=== PATIENT | male | born 1985 | race Caucasian/White ===

== ENCOUNTER 2016-05-25 18:32 | Emergency (ER) | payer MEDICAID ==
--- NOTE | 2016-05-25 18:49 | Emergency Department Record ---
History of Present Illness - General Chief Complaint: Laceration(s) Stated Complaint: LEFT THUMB LACERATION Time Seen by Provider: 05/25/16 18:37 Source: Patient Mode of Arrival: Ambulatory Limitations: No limitations - History of Present Illness Initial Commments: 30 yo male presents to ED with a CC of a laceration to the left thumb while "skinning a raccoon". Patient reports that the point of the knife he was using went directly into the dorsal aspect of the left thumb at the level of the DIP. Patient applied direct pressure to the wound prior to arrival, bleeding has stopped. Patient reports that his tetanus is UTD. Onset/Timin -: Minutes(s) Location: Other Extremity Location: Left: Hand Place: Work Context: Accidental Associated Symptoms: None - Richard Coma Scale Eye Response: (4) Open spontaneously Motor Response: (6) Obeys commands Verbal Response: (5) Oriented [place] Total: 15 - Related Data Hx Tetanus Toxoid Vaccination: Yes Year of Tetanus Vaccination: 2013 Patient Tetanus UTD (within 5 yrs): Yes Home Medications Medication Instructions Recorded Confirmed Last Taken Albuterol Sulfate [Proventil Hfa] 1 - 2 puff INH .EVERY 4-6 HOURS PRN 04/01/16 05/25/16 Unknown Aspirin Chewable 81 mg PO DAILY 04/01/16 05/25/16 04/01/16 Clonazepam [Klonopin] 1 mg PO Q12H 04/01/16 05/25/16 03/28/16 Topiramate [Topamax] 50 mg PO BID 04/01/16 05/25/16 04/01/16 Previous Rx's Medication Instructions Recorded Sertraline HCl [Zoloft] 100 mg PO DAILY #10 tablet 04/01/16 Amoxicillin/Potassium Clav 1 tab PO BID #19 tab 05/25/16 [Augmentin 875-125 Tablet] Allergies Allergy/AdvReac Type Severity Reaction Status Date / Time nortriptyline AdvReac TACHYCARDIA Verified 05/25/16 18:43 Travel Screening - Travel/Exposure Within Last 30 Days Have you traveled within the last 30 days?: No Review of Systems Constitutional: Denies: Chills, Fever, Malaise, Night sweats Eyes: Denies: Eye discharge, Eye pain ENT: Denies: Congestion, Ear pain, Epistaxis Respiratory: Denies: Cough, Dyspnea Cardiovascular: Denies: Chest pain, Dyspnea on exertion Endocrine: Denies: Fatigue, Heat or cold intolerance Gastrointestinal: Denies: Abdominal pain, Nausea, Vomiting Genitourinary: Denies: Incontinence, Retention Musculoskeletal: Denies: Arthralgia, Back pain Skin: Denies: Bruising, Change in color Neurological: Denies: Abnormal gait, Confusion, Headache, Seizure Psychiatric: Denies: Anxiety Hematological/Lymphatic: Denies: Anemia, Blood Clots Past Medical History - SOCIAL HISTORY Smoking Status: Current every day smoker Alcohol Use: None Drug Use: None - RESPIRATORY Hx Respiratory Disorders: No - CARDIOVASCULAR Hx Cardio Disorders: Yes Hx Hypertension: Yes Comment:: Tachycardia from a med- stress test neg. - NEURO Hx Neuro Disorders: Yes Hx Headaches: Yes Hx TIA: Yes Comment:: TBI ; multiple concussions - GI Hx GI Disorders: No - Hx Genitourinary Disorders: Yes Hx Kidney Stones: Yes (2013) - ENDOCRINE Hx Endocrine Disorders: No - MUSCULOSKELETAL Hx Musculoskeletal Disorders: Yes Comment:: L knee, lower leg, L hip-fractures. - PSYCH Hx Psych Problems: Yes Hx Anxiety: Yes Comment:: PTSD - HEMATOLOGY/ONCOLOGY Hx Hematology/Oncology Disorders: No Family Medical History Any Significant Family History?: Yes Hx Cancer: Father, Mother Hx Stroke: Grandparents Physical Exam - General General Appearance: Alert, Oriented x3, Cooperative, No acute distress Limitations: No limitations - Head Head exam: Atraumatic, Normocephalic, Normal inspection Head exam detail: negative: Abrasion, Contusion, Son's sign, General tenderness, Hematoma, Laceration - Eye Eye exam: Normal appearance. negative: Conjunctival injection, Periorbital swelling, Periorbital tenderness, Scleral icterus - ENT Ear exam: negative: Auricular hematoma, Auricular trauma Nasal Exam: negative: Active bleeding, Discharge, Dried blood, Foreign body Mouth exam: negative: Drooling, Laceration, Muffled voice, Tongue elevation - Neck Neck exam: Normal inspection. negative: Meningismus, Tenderness - Respiratory Respiratory exam: Normal lung sounds bilaterally. negative: Rales, Respiratory distress, Rhonchi, Stridor - Cardiovascular Cardiovascular Exam: Regular rate, Normal rhythm, Normal heart sounds - GI/Abdominal GI/Abdominal exam: Soft. negative: Rebound, Rigid, Tenderness - Rectal Rectal exam: Deferred - exam: Deferred - Extremities Extremities exam: Other (0.5 cm superficial laceration to the left thumb dorsally, no active bleeding is present, tendon function is intact with flexion and extension of the thumb. ). negative: Calf tenderness, Pedal edema, Tenderness - Back Back exam: Denies: CVA tenderness (R), CVA tenderness (L) - Neurological Neurological exam: Alert, Normal gait, Oriented X3 - Psychiatric Psychiatric exam: Normal affect, Normal mood - Skin Skin exam: Normal color. negative: Abrasion Type of lesion: negative: abrasion Course Vital Signs 05/25/16 18:36 Temperature 98.3 F Pulse Rate 81 Respiratory 20 Rate Blood Pressure 123/70 Pulse Ox 96 - Reevaluation(s) Reevaluation #1: 05/25/16 18:49 Laceration measures 0.5 cm in length on examination with no evidence for deep tissue involvment, tendon function appears normal on examination, and there is no active bleeding present. Will soak in Shur-clens solution, initiate Augmentin from [facility] ED. Sutures/Dermabond are not indicated as the wound is no longer bleeding, and do to the mechanism and risk of infection, primary closure is not recommended. Patient appears stable for discharge at this time on Augmentin for antibiotic prophylaxis. Patient was given specific signs of infection to return to ED immediately for, including: increased redness, increased pain, drainage from the wound, pain with flexion of the thumb, or fever symptoms. 05/25/16 18:52 Reevaluation #2: 05/25/16 19:11 Wound was extensively scrubbed to minimize the chance on infection, no bleeding noted. Will apply dressing to the wound to be removed tomorrow, antibiotics have been sent to the pharmacy to be filled tomorrow. Disposition Disposition: Discharge Clinical Impression: Laceration of thumb Qualifiers: Encounter type: initial encounter Laterality: left Qualified Code(s): S61.012A - Laceration without foreign body of left thumb without damage to nail, initial encounter Disposition: Home, Self-Care Condition: (2) Stable Instructions: Laceration (ED) Additional Instructions: Return to ED if your symptoms worsen or if you have any concerns. Augmentin as directed. Follow-up with your family doctor in 1 week as directed. Prescriptions: Amoxicillin/Potassium Clav [Augmentin 875-125 Tablet] 1 tab PO BID #19 tab Forms: Patient Portal Access Time of Disposition: 18:52
[2016-05-25] MEDS: AMOXICILLIN/POTASSIUM CLAV 875MG/125MG TABLET PO ONE (18:58)
== END 2016-05-25 19:22 | disposition home or self-care (01) ==
LOC: ER 18:32
DX: S61.012A Laceration without foreign body of left thumb without damage to nail, initial encounter (principal); W26.0XXA Contact with knife, initial encounter; Y99.0 Civilian activity done for income or pay
CPT/HCPCS: 99282

== ENCOUNTER 2016-07-22 20:31 | Emergency (ER) | payer MEDICAID ==
[2016-07-22] MEDS ORDERED: HYDROMORPHONE HCL 1 MG/ML CPJ IVP ONE (21:03)
[2016-07-22] MEDS ORDERED: ONDANSETRON HCL IV 4 MG/2 ML VIAL IVP ONE (21:03)
--- NOTE | 2016-07-22 21:10 | Emergency Department Record ---
History of Present Illness - General Chief Complaint: Back Pain/Injury Stated Complaint: BACK PAIN/HEAD PAIN/LEGS FEEL WEAK Time Seen by Provider: 07/22/16 21:03 Source: Patient Mode of Arrival: Ambulatory Limitations: No limitations - History of Present Illness Initial Comments: 31 yo male presents for evaluation of progressively worsening back pain symptoms for the past 3 months. Patient reports pain to the lower left lumbar region, was [facility] and told that he had a "palpable tumor" in the region of his pain. Patient reports weakness to the LLE, bowel incontinence while driving, night sweats, and 20 lb weight loss. Patient denies health problems at his baseline. MD Complaint: Back pain Onset/Timin -: Days(s) Similar Symptoms Previously: No Radiation: Left leg, Right leg Severity scale (1-10): 7 Quality: Other Consistency: Constant, Getting worse Improves With: None Worsens With: Immobilization, Walking Associated Symptoms: Difficulty walking, Incontinence, Numbness, Weakness - Related Data Home Medications Medication Instructions Recorded Confirmed Last Taken Albuterol Sulfate [Proventil Hfa] 1 - 2 puff INH .EVERY 4-6 HOURS PRN 04/01/16 05/25/16 Unknown Aspirin Chewable 81 mg PO DAILY 04/01/16 05/25/16 04/01/16 Clonazepam [Klonopin] 1 mg PO Q12H 04/01/16 05/25/16 03/28/16 Topiramate [Topamax] 50 mg PO BID 04/01/16 05/25/16 04/01/16 Previous Rx's Medication Instructions Recorded Sertraline HCl [Zoloft] 100 mg PO DAILY #10 tablet 04/01/16 Amoxicillin/Potassium Clav 1 tab PO BID #19 tab 05/25/16 [Augmentin 875-125 Tablet] Allergies Allergy/AdvReac Type Severity Reaction Status Date / Time nortriptyline AdvReac TACHYCARDIA Verified 05/25/16 18:43 Travel Screening - Travel/Exposure Within Last 30 Days Have you traveled within the last 30 days?: No - Travel Symptoms Symptom Screening: None Review of Systems Constitutional: Reports: Malaise, Night sweats, Weakness, Weight change. Denies : Chills, Fever Eyes: Denies: Eye discharge, Eye pain, Photophobia ENT: Denies: Congestion, Ear pain, Epistaxis Respiratory: Denies: Cough, Dyspnea Cardiovascular: Denies: Chest pain, Dyspnea on exertion Endocrine: Denies: Fatigue, Heat or cold intolerance Gastrointestinal: Reports: Other (bowel incontinence). Denies: Abdominal pain, Nausea, Vomiting Genitourinary: Denies: Incontinence, Retention Musculoskeletal: Reports: Back pain. Denies: Arthralgia, Gout, Joint swelling Skin: Denies: Bruising, Change in color, Change in hair/nails, Rash Neurological: Reports: Headache. Denies: Abnormal gait, Confusion, Seizure Psychiatric: Denies: Anxiety Hematological/Lymphatic: Denies: Anemia, Blood Clots Past Medical History - SOCIAL HISTORY Smoking Status: Current every day smoker - RESPIRATORY Hx Respiratory Disorders: Yes Hx Asthma: Yes Hx Sleep Apnea: Yes (waiting on testing.) - CARDIOVASCULAR Hx Cardio Disorders: Yes Hx Hypertension: Yes Comment:: Tachycardia from a med- stress test neg. - NEURO Hx Neuro Disorders: Yes Hx Headaches: Yes Hx TIA: Yes Comment:: TBI ; multiple concussions - GI Hx GI Disorders: No - Hx Genitourinary Disorders: Yes Hx Kidney Stones: Yes (2013) - ENDOCRINE Hx Endocrine Disorders: No - MUSCULOSKELETAL Hx Musculoskeletal Disorders: Yes Comment:: L knee, lower leg, L hip-fractures. - PSYCH Hx Psych Problems: Yes Hx Anxiety: Yes Comment:: PTSD - HEMATOLOGY/ONCOLOGY Hx Hematology/Oncology Disorders: No Family Medical History Any Significant Family History?: Yes Hx Cancer: Father, Mother Hx Stroke: Grandparents Physical Exam - General General Appearance: Alert, Oriented x3, Cooperative, Moderate distress Limitations: No limitations - Head Head exam: Atraumatic, Normocephalic, Normal inspection Head exam detail: negative: Abrasion, Contusion, Son's sign, General tenderness, Hematoma, Laceration - Eye Eye exam: Normal appearance. negative: Conjunctival injection, Periorbital swelling, Periorbital tenderness, Scleral icterus - ENT Ear exam: negative: Auricular hematoma, Auricular trauma Nasal Exam: negative: Active bleeding, Discharge, Dried blood, Foreign body Mouth exam: negative: Drooling, Laceration, Muffled voice, Tongue elevation - Neck Neck exam: Normal inspection. negative: Meningismus, Tenderness - Respiratory Respiratory exam: Normal lung sounds bilaterally. negative: Rales, Respiratory distress, Rhonchi, Stridor - Cardiovascular Cardiovascular Exam: Regular rate, Normal rhythm, Normal heart sounds - GI/Abdominal GI/Abdominal exam: Soft. negative: Rebound, Rigid, Tenderness - Rectal Rectal exam: Deferred - exam: Deferred - Extremities Extremities exam: Normal inspection. negative: Calf tenderness, Pedal edema, Tenderness - Back Back exam: Reports: Paraspinal tenderness (Left lower back paravertebral region) . Denies: CVA tenderness (R), CVA tenderness (L) - Neurological Neurological exam: Alert, Motor sensory deficit (4+/5 strength left lower extremity compared with the right.), Oriented X3 - Psychiatric Psychiatric exam: Normal affect, Normal mood - Skin Skin exam: Normal color. negative: Abrasion Type of lesion: negative: abrasion Course Vital Signs 07/22/16 20:39 Temperature 97.7 F Pulse Rate [ 82 Pulse Ox Probe] Respiratory 20 Rate Blood Pressure 114/87 [Left Arm] Pulse Ox 95 - Reevaluation(s) Reevaluation #1: 07/22/16 21:10 Case was discussed with Dr. Carrasquillo, will transfer for evaluation and probably MRI to exclude an acute spinal compression syndrome. 07/22/16 21:14 Reevaluation #2: 07/22/16 21:47 Patient declined Dilaudid for his pain symptoms due to previous opiate addiction issues, Toradol ordered. EMS is present for transfer. Disposition Disposition: Transfer Clinical Impression: Spinal cord compression Back pain Qualifiers: Back pain location: low back pain Chronicity: acute Back pain laterality: left Sciatica presence: without sciatica Qualified Code(s): M54.5 - Low back pain Transfer To: [facility] Reason For Transfer: MRI/neuro-surgical evaluation Accepting Physician: Foreign Time Discussed w/Accepting Physician: 21:12 Forms: Patient Portal Access Time of Disposition: 21:12
[2016-07-22] MEDS ORDERED: 0.9 % SODIUM CHLORIDE 1000ML 1,000 ML IV SCH (21:15)
[2016-07-22] MEDS ORDERED: KETOROLAC 30 MG/ML VIAL IVP ONE (21:25)
== END 2016-07-22 21:58 | disposition short-term general hospital (02) ==
LOC: ER 20:31
DX: G95.20 Unspecified cord compression (principal); M54.5 Low back pain; R26.2 Difficulty in walking, not elsewhere classified; R15.9 Full incontinence of feces; R53.1 Weakness
CPT/HCPCS: 96374; 96375; 99285; J1885; J2405; J7030

== ENCOUNTER 2016-11-01 | Emergency (ER) | payer SELFPAY ==
--- NOTE | 2016-11-01 00:21 | Emergency Department Record ---
History of Present Illness - General Chief complaint: Male Urogenital Problem Stated complaint: TESTICULAR PAIN Time Seen by Provider: 11/01/16 00:01 Source: Patient Mode of Arrival: Ambulatory Limitations: No limitations - History of Present Illness Initial comments: 31 yo male presents to ED with a CC of right sided testicular pain and swelling for the past 3-4 days. Patient reports possible trauma to the testicle while wrestling with his son. Patient reports that his symptoms have progressively worsened since that time, and the patient denies dysuria symptoms. MD Complaint: Testicle pain Onset/Timin -: Days(s) Location: Right testicle Radiation: None Severity scale (1-10): 7 Quality: Aching Consistency: Constant, Getting worse Improves with: None Worsens with: None - Related Data Sexually active: No Home Medications Medication Instructions Recorded Confirmed Last Taken Albuterol Sulfate [Proventil Hfa] 1 - 2 puff INH .EVERY 4-6 HOURS PRN 04/01/16 11/01/16 Unknown Aspirin Chewable 81 mg PO DAILY 04/01/16 11/01/16 04/01/16 Clonazepam [Klonopin] 1 mg PO Q12H 04/01/16 11/01/16 03/28/16 Topiramate [Topamax] 50 mg PO BID 04/01/16 11/01/16 04/01/16 Sertraline HCl [Zoloft] 50 mg PO DAILY 11/01/16 11/01/16 Unknown Allergies Allergy/AdvReac Type Severity Reaction Status Date / Time nortriptyline AdvReac TACHYCARDIA Verified 05/25/16 18:43 Travel Screening - Travel/Exposure Within Last 30 Days Have you traveled within the last 30 days?: No Review of Systems Constitutional: Denies: Chills, Fever, Malaise, Night sweats Eyes: Denies: Eye discharge, Eye pain ENT: Denies: Congestion, Ear pain, Epistaxis Respiratory: Denies: Cough, Dyspnea Cardiovascular: Denies: Chest pain, Dyspnea on exertion Endocrine: Denies: Fatigue, Heat or cold intolerance Gastrointestinal: Denies: Abdominal pain, Nausea, Vomiting Genitourinary: Reports: Testicular pain. Denies: Incontinence, Retention Musculoskeletal: Denies: Arthralgia, Back pain, Gout, Joint swelling Skin: Denies: Bruising, Change in color Neurological: Denies: Abnormal gait, Confusion, Headache, Seizure Psychiatric: Denies: Anxiety Hematological/Lymphatic: Denies: Anemia, Blood Clots Past Medical History - SOCIAL HISTORY Smoking Status: Current every day smoker Alcohol Use: None Drug Use: None - RESPIRATORY Hx Respiratory Disorders: Yes Hx Asthma: Yes Hx Sleep Apnea: Yes (waiting on testing.) - CARDIOVASCULAR Hx Cardio Disorders: Yes Hx Hypertension: Yes Comment:: Tachycardia from a med- stress test neg. - NEURO Hx Neuro Disorders: Yes Hx Headaches: Yes Hx TIA: Yes Comment:: TBI ; multiple concussions - GI Hx GI Disorders: No - Hx Genitourinary Disorders: Yes Hx Kidney Stones: Yes (2013) - ENDOCRINE Hx Endocrine Disorders: No - MUSCULOSKELETAL Hx Musculoskeletal Disorders: Yes Comment:: L knee, lower leg, L hip-fractures. - PSYCH Hx Psych Problems: Yes Hx Anxiety: Yes Comment:: PTSD - HEMATOLOGY/ONCOLOGY Hx Hematology/Oncology Disorders: No Family Medical History Any Significant Family History?: Yes Hx Cancer: Father, Mother Hx Stroke: Grandparents Physical Exam - General General Appearance: Alert, Oriented x3, Cooperative, Mild distress Limitations: No limitations - Head Head exam: Atraumatic, Normocephalic, Normal inspection Head exam detail: negative: Abrasion, Contusion, Son's sign, General tenderness, Hematoma, Laceration - Eye Eye exam: Normal appearance. negative: Conjunctival injection, Periorbital swelling, Periorbital tenderness, Scleral icterus - ENT Ear exam: negative: Auricular hematoma, Auricular trauma Nasal Exam: negative: Active bleeding, Discharge, Dried blood, Foreign body Mouth exam: negative: Drooling, Laceration, Muffled voice, Tongue elevation - Neck Neck exam: Normal inspection. negative: Meningismus, Tenderness - Respiratory Respiratory exam: Normal lung sounds bilaterally. negative: Rales, Respiratory distress, Rhonchi, Stridor, Wheezes - Cardiovascular Cardiovascular Exam: Regular rate, Normal rhythm, Normal heart sounds - GI/Abdominal GI/Abdominal exam: Soft. negative: Rebound, Rigid, Tenderness - Rectal Rectal exam: Deferred - exam: Testicular tenderness. negative: Urethral discharge - Extremities Extremities exam: Normal inspection. negative: Calf tenderness, Pedal edema, Tenderness - Back Back exam: Denies: CVA tenderness (R), CVA tenderness (L) - Neurological Neurological exam: Alert, Normal gait, Oriented X3 - Psychiatric Psychiatric exam: Normal affect, Normal mood - Skin Skin exam: Normal color. negative: Abrasion Type of lesion: negative: abrasion Course Vital Signs 11/01/16 00:06 Temperature 97.7 F Pulse Rate [ 79 Pulse Ox Probe] Respiratory 20 Rate Blood Pressure 121/80 [Left Arm] Pulse Ox 98 - Reevaluation(s) Reevaluation #1: 11/01/16 00:32 Case was discussed with Dr. Flood, will accept transfer for scrotal US. Patient appears stable for transfer by private car for urgent US imaging upon arrival to the ED. Patient and family agree with the plan as discussed. Disposition Disposition: Transfer Clinical Impression: Testicular pain, right Disposition: Acute Care Hospital Transfer Transfer To: [facility] Reason For Transfer: Scrotal US Accepting Physician: Remigio Time Discussed w/Accepting Physician: 00:32 Condition: (2) Stable Forms: Patient Portal Access Time of Disposition: 00:32 Quality - Quality Measures Quality Measures: N/A - Blood Pressure Screening Blood Pressure Classification: Pre-Hypertensive BP Reading Systolic Measurement: 121 Diastolic Measurement: 80 Screening for High Blood Pressure: < Pre-Hypertensive BP, F/U Documented > [ [id number]] Pre-Hypertensive Follow-up Interventions: Referral to alternative/primary care provider.
== END 2016-11-01 00:46 | disposition short-term general hospital (02) ==
LOC: ER
DX: N50.811 Right testicular pain (principal)
CPT/HCPCS: 99283

== ENCOUNTER 2017-03-08 22:14 | Emergency (ER) | payer OTHER ==
--- NOTE | 2017-03-08 23:04 | Emergency Department Record ---
Anxiety - General Chief Complaint: Anxiety Stated Complaint: ANXIETY Time Seen by Provider: 03/08/17 22:57 Source: Patient Mode of Arrival: Ambulatory Limitations: No limitations - History of Present Illness Initial Comments: 31 yo male presents with anxiety. Has been without Klononin for 4 days. His tracking paperwork show his medication will arrive tomorrow but after 4 days he is feeling very anxiety and shaky. No nausea or vomiting. No diarrhea. He is weaning off the medication but the mail and holiday have delayed arrival. [facility] [place] [facility] Complaint: Anxiety Onset/Timin -: Days(s) Symptoms: Other Place: Home Previous History of Same: Yes Severity: Mild Provoking factors: Work/job stress Improves With: Nothing Worsens With: Nothing Associated symptoms: Denies other symptoms - Related Data Home Medications: Previous Rx's Medication Instructions Recorded Clonazepam [Klonopin] 1 mg PO Q12H #2 tablet 03/08/17 Allergies/Adverse Reactions: Allergies Allergy/AdvReac Type Severity Reaction Status Date / Time nortriptyline AdvReac TACHYCARDIA Verified 05/25/16 18:43 Travel Screening - Travel/Exposure Within Last 30 Days Have you traveled within the last 30 days?: No - Travel/Exposure Within Last Year Have you traveled outside the [place] in the last year?: No - Additonal Travel Details Have you been exposed to anyone with a communicable illness?: No - Travel Symptoms Symptom Screening: None Review of Systems Constitutional: Denies: Chills, Fever, Malaise, Weakness Eyes: Denies: Eye discharge, Eye pain, Photophobia, Vision change ENT: Denies: Congestion, Throat pain Respiratory: Denies: Cough, Dyspnea, Hemoptysis, Stridor, Wheezes Cardiovascular: Denies: Chest pain, Palpitations, Syncope Endocrine: Denies: Fatigue, Polydipsia, Polyuria Gastrointestinal: Denies: Abdominal pain, Diarrhea, Nausea, Vomiting Genitourinary: Denies: Dysuria, Frequency, Hematuria Musculoskeletal: Denies: Arthralgia, Back pain, Joint swelling, Myalgia Skin: Denies: Bruising, Change in color, Rash Neurological: Denies: Abnormal gait, Confusion, Headache, Numbness, Tingling, Tremors, Weakness Psychiatric: Reports: Anxiety Hematological/Lymphatic: Denies: Anemia, Blood Clots, Easy bleeding, Easy bruising, Swollen glands Past Medical History - SOCIAL HISTORY Smoking Status: Current every day smoker Alcohol Use: None Drug Use: None - RESPIRATORY Hx Respiratory Disorders: Yes Hx Asthma: Yes Hx Sleep Apnea: Yes (waiting on testing.) - CARDIOVASCULAR Hx Cardio Disorders: Yes Hx Hypertension: Yes Comment:: Tachycardia from a med- stress test neg. - NEURO Hx Neuro Disorders: Yes Hx Headaches: Yes Hx TIA: Yes Comment:: TBI ; multiple concussions - GI Hx GI Disorders: No - Hx Genitourinary Disorders: Yes Hx Kidney Stones: Yes (2013) - ENDOCRINE Hx Endocrine Disorders: No - MUSCULOSKELETAL Hx Musculoskeletal Disorders: Yes Comment:: L knee, lower leg, L hip-fractures. - PSYCH Hx Psych Problems: Yes Hx Anxiety: Yes Comment:: PTSD - HEMATOLOGY/ONCOLOGY Hx Hematology/Oncology Disorders: No Family Medical History Any Significant Family History?: No Hx Cancer: Father, Mother Hx Stroke: Grandparents Physical Exam - General General Appearance: Alert, Oriented x3, Cooperative, No acute distress Limitations: No limitations - Head Head exam: Normal inspection - Eye Eye exam: Normal appearance, PERRL. negative: Conjunctival injection, Periorbital swelling - ENT ENT exam: Normal exam, Mucous membranes moist Ear exam: Normal external inspection Nasal Exam: Normal inspection Mouth exam: Normal external inspection - Neck Neck exam: Normal inspection, Full ROM. negative: Tenderness - Respiratory Respiratory exam: Normal lung sounds bilaterally. negative: Respiratory distress - Cardiovascular Cardiovascular Exam: Regular rate, Normal rhythm, Normal heart sounds Peripheral Pulses: 2+: Radial (R), Radial (L) - GI/Abdominal GI/Abdominal exam: Soft. negative: Tenderness - Rectal Rectal exam: Deferred - exam: Deferred - Extremities Extremities exam: Normal inspection - Back Back exam: Reports: Normal inspection, Full ROM. Denies: Muscle spasm, Rash noted, Tenderness - Neurological Neurological exam: Alert, Normal gait, Oriented X3, Reflexes normal. negative: Abnormal gait, Altered, Motor sensory deficit - Psychiatric Psychiatric exam: Normal affect, Normal mood. negative: Anxious - Skin Skin exam: Dry, Intact, Normal color, Warm Course Vital Signs 03/08/17 22:42 Temperature 97.9 F Pulse Rate 66 Respiratory 20 Rate Blood Pressure 115/82 Pulse Ox 97 - Reevaluation(s) Reevaluation #1: The patient was seen and examined He has the tracking information I explained [facility] policy of no refills on controlled medications He will be provided one does in the ED. He has a ride An Rx for 2 tablets was provided DC stable with anticipated follow up with [facility] doctor [facility] 03/08/17 23:12 Disposition Disposition: Discharge Clinical Impression: Anxiety Disposition: Home, Self-Care Condition: (1) Good Instructions: Social Anxiety Disorder (ED) Additional Instructions: Call your doctor for close follow up this week Resume your prescription when it arrives Prescriptions: Clonazepam [Klonopin] 1 mg PO Q12H #2 tablet Forms: Patient Portal Access Time of Disposition: 22:59 Quality - Quality Measures Quality Measures: N/A - Blood Pressure Screening Does Patient Have Any of the Following: No Blood Pressure Classification: Pre-Hypertensive BP Reading Systolic Measurement: 115 Diastolic Measurement: 82 Screening for High Blood Pressure: < Pre-Hypertensive BP, F/U Documented > [ G8950] Pre-Hypertensive Follow-up Interventions: Referral to alternative/primary care provider.
[2017-03-08] MEDS: CLONAZEPAM 1MG TABLET PO ONE (23:11)
== END 2017-03-08 23:17 | disposition home or self-care (01) ==
LOC: ER 22:14
DX: F41.9 Anxiety disorder, unspecified (principal)
CPT/HCPCS: 99282

== ENCOUNTER 2017-06-09 00:17 | Emergency (ER) | payer OTHER ==
[2017-06-09] MEDS ORDERED: CLONAZEPAM 1MG TABLET PO ONE (01:03)
--- NOTE | 2017-06-09 01:14 | Emergency Department Record ---
History of Present Illness - General Chief complaint: Vomiting Stated complaint: VOMITTING,SHAKES,NUMBNESS Time Seen by Provider: 06/09/17 00:50 Source: Patient Mode of Arrival: Ambulatory Limitations: No limitations - History of Present Illness Initial comments: [facility] them daily Onset/Timin -: Days(s) Associated Abdominal Pain: No Associated Symptoms: Nausea/vomiting - Related Data Previous Rx's Medication Instructions Recorded Clonazepam [Klonopin] 1 mg PO Q12H #2 tablet 03/08/17 Clonazepam [Klonopin] 1 mg PO Q12H #14 tablet 06/09/17 Sertraline HCl [Zoloft] 50 mg PO DAILY #14 tablet 06/09/17 Allergies Allergy/AdvReac Type Severity Reaction Status Date / Time nortriptyline AdvReac TACHYCARDIA Verified 05/25/16 18:43 Travel Screening - Travel/Exposure Within Last 30 Days Have you traveled within the last 30 days?: No Review of Systems Reviewed: No additional complaints except as noted below Constitutional: Reports: As per HPI. Denies: Chills, Fever, Malaise, Night sweats, Weakness, Weight change Eyes: Reports: As per HPI. Denies: Eye discharge, Eye pain, Photophobia, Vision change ENT: Reports: As per HPI. Denies: Congestion, Dental pain, Ear pain, Epistaxis , Hearing loss, Throat pain Respiratory: Reports: As per HPI. Denies: Cough, Dyspnea, Hemoptysis, Stridor, Wheezes Cardiovascular: Reports: As per HPI. Denies: Arrhythmia, Chest pain, Dyspnea on exertion, Edema, Murmurs, Orthopnea, Palpitations, Paroxysmal nocturnal dyspnea, Rheumatic Fever, Syncope Endocrine: Reports: As per HPI. Denies: Fatigue, Heat or cold intolerance, Polydipsia, Polyuria Gastrointestinal: Reports: As per HPI. Denies: Abdominal pain, Constipation, Diarrhea, Hematemesis, Hematochezia, Melena, Nausea, Vomiting Genitourinary: Reports: As per HPI. Denies: Dysuria, Frequency, Hematuria, Incontinence, Retention, Testicular pain, Testicular mass, Urgency Musculoskeletal: Reports: As per HPI. Denies: Arthralgia, Back pain, Gout, Joint swelling, Myalgia, Neck pain Skin: Reports: As per HPI. Denies: Bruising, Change in color, Change in hair/ nails, Lesions, Pruritus, Rash Neurological: Reports: As per HPI. Denies: Abnormal gait, Confusion, Headache, Numbness, Paresthesias, Seizure, Tingling, Tremors, Vertigo, Weakness Psychiatric: Reports: As per HPI. Denies: Anxiety, Auditory hallucinations, Depression, Homicidal thoughts, Suicidal thoughts, Visual hallucinations Hematological/Lymphatic: Reports: As per HPI. Denies: Anemia, Blood Clots, Easy bleeding, Easy bruising, Swollen glands Past Medical History - SOCIAL HISTORY Smoking Status: Current every day smoker Alcohol Use: None Drug Use: None - RESPIRATORY Hx Respiratory Disorders: Yes Hx Asthma: Yes Hx Sleep Apnea: Yes (waiting on testing.) - CARDIOVASCULAR Hx Cardio Disorders: Yes Hx Hypertension: Yes Comment:: Tachycardia from a med- stress test neg. - NEURO Hx Neuro Disorders: Yes Hx Headaches: Yes Hx TIA: Yes (2013) Comment:: TBI (open head wound) ; multiple concussions - GI Hx GI Disorders: No - Hx Genitourinary Disorders: Yes Hx Kidney Stones: Yes (2013) - ENDOCRINE Hx Endocrine Disorders: No - MUSCULOSKELETAL Hx Musculoskeletal Disorders: Yes Comment:: L knee, lower leg, L hip-fractures. - PSYCH Hx Psych Problems: Yes Hx Anxiety: Yes Comment:: PTSD - HEMATOLOGY/ONCOLOGY Hx Hematology/Oncology Disorders: No Family Medical History Any Significant Family History?: Yes Hx Cancer: Father, Mother Hx Stroke: Grandparents Physical Exam - General General Appearance: Alert, Oriented x3, Cooperative, Mild distress - Head Head exam: Normal inspection - Eye Eye exam: Normal appearance, PERRL, EOMI Pupils: Normal accommodation - ENT ENT exam: Normal exam, Mucous membranes moist, Normal external ear exam, Normal orophraynx Ear exam: Normal external inspection. negative: External canal tenderness Nasal Exam: Normal inspection. negative: Discharge, Sinus tenderness Mouth exam: Normal external inspection, Tongue normal Teeth exam: Normal inspection. negative: Dental caries Throat exam: Normal inspection. negative: Tonsillar erythema, Tonsillar exudate - Neck Neck exam: Normal inspection, Full ROM. negative: Tenderness - Respiratory Respiratory exam: Normal lung sounds bilaterally. negative: Respiratory distress - Cardiovascular Cardiovascular Exam: Regular rate, Normal rhythm, Normal heart sounds - GI/Abdominal GI/Abdominal exam: Soft, Normal bowel sounds. negative: Tenderness - Rectal Rectal exam: Deferred - exam: Deferred - Extremities Extremities exam: Normal inspection, Full ROM, Normal capillary refill. negative: Tenderness - Back Back exam: Reports: Normal inspection, Full ROM. Denies: Muscle spasm, Rash noted, Tenderness - Neurological Neurological exam: Alert, CN II-XII intact, Normal gait, Oriented X3 - Psychiatric Psychiatric exam: Anxious, Normal mood - Skin Skin exam: Dry, Intact, Normal color, Warm Course Vital Signs 06/09/17 00:28 Temperature 98.5 F Pulse Rate [ 65 Pulse Ox Probe] Respiratory 15 Rate Blood Pressure 132/76 [Left Arm] Pulse Ox 97 Disposition Disposition: Discharge Clinical Impression: Anxiety, Medication refill Disposition: Home, Self-Care Condition: (1) Good Instructions: Anxiety (ED), Sertraline (By mouth) Additional Instructions[facility] sooner if worse. Prescriptions: Clonazepam [Klonopin] 1 mg PO Q12H #14 tablet Sertraline HCl [Zoloft] 50 mg PO DAILY #14 tablet Quality - Quality Measures Quality Measures: N/A - Blood Pressure Screening Does Patient Have Any of the Following: No Blood Pressure Classification: Pre-Hypertensive BP Reading Systolic Measurement: 132 Diastolic Measurement: 76 Screening for High Blood Pressure: < Pre-Hypertensive BP, F/U Documented > [ G8950] Pre-Hypertensive Follow-up Interventions: Follow-up with rescreen every year.
[2017-06-09] MEDS ORDERED: SERTRALINE HCL 50 MG TABLET PO SCH (10:00)
== END 2017-06-09 01:25 | disposition home or self-care (01) ==
LOC: ER 00:17
DX: R11.2 Nausea with vomiting, unspecified (principal); R20.0 Anesthesia of skin; Z76.0 Encounter for issue of repeat prescription; R41.9 Unspecified symptoms and signs involving cognitive functions and awareness; I10 Essential (primary) hypertension; F17.210 Nicotine dependence, cigarettes, uncomplicated
CPT/HCPCS: 99282

== ENCOUNTER 2018-02-23 16:14 | Emergency (ER) | payer OTHER ==
--- NOTE | 2018-02-23 16:42 | Emergency Department Record ---
Anxiety - General Chief Complaint: Anxiety Stated Complaint: MEDS CHANGED/ NOT FEELING WELL Time Seen by Provider: 02/23/18 16:35 Source: Patient Mode of Arrival: Ambulatory - History of Present Illness Initial Comments: valium stopped 8 days ago and he having problems with insomnia and headaches and stommach is notted up. Patient has post traumatic stress syndrome. Last time vomiting this am. Onset/Timin -: Days(s) Symptoms: Dry mouth, Extremity numbness/tingling, Other Previous History of Same: Yes Severity: Moderate Quality: Intermittant Provoking factors: Medication change Improves With: Nothing Worsens With: Nothing Associated symptoms: Headaches, Other - Related Data Home Medications: Home Medications Medication Instructions Recorded Confirmed Last Taken Sertraline HCl [Zoloft] 150 mg PO DAILY 02/23/18 02/23/18 02/23/18 Previous Rx's Medication Instructions Recorded Hydroxyzine Pamoate [Vistaril] 25 mg PO Q6H #30 capsule 02/23/18 Allergies/Adverse Reactions: Allergies Allergy/AdvReac Type Severity Reaction Status Date / Time nortriptyline AdvReac TACHYCARDIA Verified 02/23/18 16:19 Travel Screening - Travel/Exposure Within Last 30 Days Have you traveled within the last 30 days?: No - Travel/Exposure Within Last Year Have you traveled outside the [place] in the last year?: No - Additonal Travel Details Have you been exposed to anyone with a communicable illness?: No - Travel Symptoms Symptom Screening: None Past Medical History - SOCIAL HISTORY Smoking Status: Light tobacco smoker (<10/day) Alcohol Use: None Drug Use: None - RESPIRATORY Hx Respiratory Disorders: Yes Hx Asthma: Yes Hx Sleep Apnea: Yes (waiting on testing.) - CARDIOVASCULAR Hx Cardio Disorders: Yes Hx Hypertension: Yes Comment:: Tachycardia from a med- stress test neg. - NEURO Hx Neuro Disorders: Yes Hx Headaches: Yes Hx TIA: Yes (2013) Comment:: TBI (open head wound) ; multiple concussions - GI Hx GI Disorders: No - Hx Genitourinary Disorders: Yes Hx Kidney Stones: Yes (2013) - ENDOCRINE Hx Endocrine Disorders: No - MUSCULOSKELETAL Hx Musculoskeletal Disorders: Yes Comment:: L knee, lower leg, L hip-fractures. - PSYCH Hx Psych Problems: Yes Hx Anxiety: Yes Comment:: PTSD - HEMATOLOGY/ONCOLOGY Hx Hematology/Oncology Disorders: No Family Medical History Any Significant Family History?: Yes Hx Cancer: Father, Mother Hx Stroke: Grandparents Course Vital Signs 02/23/18 16:21 Temperature 98 F Pulse Rate 76 Respiratory 18 Rate Blood Pressure 134/90 Pulse Ox 95 Medical Decision Making - Lab Data Result diagrams: 02/23/18 17:00 02/23/18 17:00 Disposition Clinical Impression: Withdrawal from benzodiazepine Qualifiers: Complication of substance-induced condition: uncomplicated Qualified Code(s): F13.230 - Sedative, hypnotic or anxiolytic dependence with withdrawal, uncomplicated Disposition: Home, Self-Care Condition: (1) Good Instructions: Anxiety (ED) Additional Instructions: [facility] torres for headaches vistaril for withdawal symptoms Prescriptions: Hydroxyzine Pamoate [Vistaril] 25 mg PO Q6H #30 capsule Forms: Patient Portal Access Time of Disposition: 18:35 Quality - Quality Measures Quality Measures: N/A - Blood Pressure Screening Does Patient Have Any of the Following: No Blood Pressure Classification: Hypertensive Reading Systolic Measurement: 134 Diastolic Measurement: 90 Screening for High Blood Pressure: < Pre-Hypertensive BP, F/U Documented > [ G8950] Pre-Hypertensive Follow-up Interventions: Referral to alternative/primary care provider.
[2018-02-23 17:11] LABS: BASO % 0.5 % (0-6); EOS % 2.7 % (0-6); GRAN % 56.4 % (47-80); HEMATOCRIT 47.6 % (42.0-52.0); HEMOGLOBIN 15.9 gm/dl (14.0-18.0); LYMPH % 31.7 % (16-45); MEAN CORPUSCULAR HEMOGLOBIN 30.1 pg (27-33); MEAN CORPUSCULAR HGB CONC 33.4 g/dl (32-36); MEAN PLATELET VOLUME 10.6 fl (7.4-10.4); MONO % 8.7 % (0-9); PLATELET COUNT 299 K/uL (130-400); RED BLOOD COUNT 5.29 M/uL (4.40-5.70); RED CELL DISTRIBUTION WIDTH 13.2 % (11.5-14.5); WHITE BLOOD COUNT W/O DIFF 9.5 K/uL (4.2-12.2)
[2018-02-23 17:19] LABS: BLOOD UREA NITROGEN 9 mg/dL (6-20); CREATININE 1.1 mg/dL (0.7-1.2); EST GLOMERULAR FILTRATION RATE > 60 mL/min
[2018-02-23 17:22] LABS: GLUCOSE,RANDOM 99 mg/dL (74-109)
[2018-02-23 17:59] LABS: URINE APPEARANCE CLEAR; URINE BILIRUBIN NEGATIVE (NEGATIVE); URINE BLOOD NEGATIVE (NEGATIVE); URINE COLOR YELLOW; URINE GLUCOSE (UA) NEGATIVE (NEGATIVE); URINE KETONE NEGATIVE (NEGATIVE); URINE LEUKOCYTE ESTERASE NEGATIVE (NEGATIVE); URINE NITRITE NEGATIVE (NEGATIVE); URINE PROTEIN NEGATIVE (NEGATIVE)
[2018-02-23 18:05] LABS: AMPHETAMINE SCREEN URINE NOT DETECTED; BARBITURATE SCREEN URINE NOT DETECTED; BENZODIAZEPINE SCREEN URINE DETECTED; COCAINE SCREEN URINE NOT DETECTED; METHADONE SCREEN URINE NOT DETECTED; METHAMPHETAMINE SCREEN NOT DETECTED; OPIATE SCREEN URINE NOT DETECTED; OXYCODONE SCREEN URINE NOT DETECTED; PHENCYCLIDINE SCREEN URINE NOT DETECTED; PROPOXYPHENE SCREEN URINE NOT DETECTED; THC SCREEN URINE NOT DETECTED; TRICYCLIC ANTIDEPRESSANT SCRN NOT DETECTED
[2018-02-23] MEDS: 0.9 % SODIUM CHLORIDE 1,000 ML BAG IV ONE (18:49)
== END 2018-02-23 18:30 | disposition home or self-care (01) ==
LOC: ER 16:14
DX: F13.230 Sedative, hypnotic or anxiolytic dependence with withdrawal, uncomplicated (principal); G47.00 Insomnia, unspecified; T42.4X5A Adverse effect of benzodiazepines, initial encounter; R20.0 Anesthesia of skin; R51 Headache; I10 Essential (primary) hypertension; F17.210 Nicotine dependence, cigarettes, uncomplicated
CPT/HCPCS: 80048; 80305; 81003; 85025; 99284; J7030